=== PATIENT | male | born 1940 | race Caucasian/White ===

== ENCOUNTER → 2020-04-06 | Outpatient (CLI) | payer OTHER ==
[~2020-04-06] MED LIST: ALTACE10 MG PO; ANTIVERT25 MG PO; ASPIRIN325 PO; ASPIRIN81 M2 PO; CENTRUM SILVER1 EAC2 PO; FISH OIL 1,001000 M2 PO; LIPITOR40 MG PO; METFORMIN HCL500 MG PO; MULTAQ 400 MG400 MG PO; TIMOLOL GL0.5 %/5 M1 OPHTHALMIC; TOPROL XL25 MG PO; XALATAN2.5 ML OPHTHALMIC; XARELTO20 MG PO
== END ==
LOC: SJCVCIMAG 08:52
PROVIDERS: ATTEND Internal Medicine Cardiovascular Disease
DX: I08.3 Combined rheumatic disorders of mitral, aortic and tricuspid valves (principal); I25.10 Atherosclerotic heart disease of native coronary artery without angina pectoris; I48.92 Unspecified atrial flutter

== ENCOUNTER → 2020-10-13 | Outpatient (CLI) | payer OTHER | LOC: SJCVCIMAG 07:33 | PROVIDERS: ATTEND Internal Medicine Cardiovascular Disease | DX: I48.91 Unspecified atrial fibrillation (principal); I48.92 Unspecified atrial flutter; I49.3 Ventricular premature depolarization; I25.10 Atherosclerotic heart disease of native coronary artery without angina pectoris; E78.5 Hyperlipidemia, unspecified; I10 Essential (primary) hypertension; E11.9 Type 2 diabetes mellitus without complications; Z79.899 Other long term (current) drug therapy ==